=== PATIENT | female | born 1970 | race Two or more races ===

== ENCOUNTER 2022-01-18 13:53 | Emergency (ER) | payer OTHER ==
[~2022-01-18] VITALS: Ht 162.6 cm; Wt 71.2 kg
== END 2022-01-18 15:05 | disposition home or self-care (01) ==
LOC: FSED 14:00
DX: R50.9 Fever, unspecified (principal); S93.491A Sprain of other ligament of right ankle, initial encounter; X50.1XXA Overexertion from prolonged static or awkward postures, initial encounter; Y92.89 Other specified places as the place of occurrence of the external cause; I10 Essential (primary) hypertension
CPT/HCPCS: 99282